=== PATIENT | female | born 1955 | race Caucasian/White ===

== ENCOUNTER 2024-11-29 12:10 | Outpatient (AMB) | payer MEDICARE, OTHER, SELFPAY ==
--- OUTSIDE RECORDS SUMMARY | 2024-11-29 12:26 | XMS_ITS | Clinical Summary ---
Author Organization [facility] [address] [place] [address] [place] [phone] Phone Care Team Providers Care Scrap Burner Name Role Phone Grisel Ramachandran MD Primary Care Provider [phone] Allergies Active Allergy Reactions Criticality Noted Date Comments Sulfa (Sulfonamide Antibiotics) Rash 08/17 Medications DULoxetine (CYMBALTA) [address] capsule Take 1 capsule (60 mg total) by mouth 1 (one) time each day. 4 Active buPROPion SR (WELLBUTRIN SR) 150 mg 12 hr tablet Take 1 tablet (150 mg total) by mouth 1 (one) time each day in the morning. 4 Active atenoloL (TENORMIN) 25 mg tablet Take 1 tablet (25 mg total) by mouth 1 (one) time each day. 4 Active LORazepam (ATIVAN) 0.5 mg tablet 1 po qhs prn anxiety 4 Active levothyroxine (SYNTHROID, LEVOTHROID) 125 mcg tablet Take 1 tablet (125 mcg total) by mouth 1 (one) time each day. 4 Active pravastatin (PRAVACHOL) 10 mg tablet Take 1 tablet (10 mg total) by mouth 1 (one) time each day. 4 Active gabapentin (NEURONTIN) 300 mg capsule 3 times daily. 3 Active acetaminophen (TYLENOL) 500 mg tablet Take 2 tablets (1,000 mg total) by mouth as needed. 2 Active amoxicillin (AMOXIL) 500 mg capsule TAKE 4 CAPSULES BY MOUTH 1 HOURS PRIOR TO APPOINTMENT 3 Active fluticasone propionate (FLONASE) 50 mcg/actuation nasal spray INSTILL 2 SPRAYS BY NASAL ROUTE EVERY DAY 1 Active loratadine (CLARITIN) 10 mg tablet Take 1 tablet (10 mg total) by mouth 1 (one) time each day. 8 Active amLODIPine (NORVASC) 5 mg tabletIndication s:Essential (primary) hypertension TAKE 1 AND 1/2 TABLETS BY MOUTH DAILY 135 tablet 1 4 Active Active Problems Problem Noted Date Diagnosed Date Osteopenia 01/03/2024 Primary osteoarthritis of left shoulder 01/07/20 21 Obstructive sleep apnea 10/29/2019 Overview (07/18/2024): [facility] Polysomnogram: Date 10/22/2019; Wt 224#; BMI 37; SE 37%; SM 57%; REM 0%; RDI 8 (AHI 7), Central apneas 0; Obstructive apneas 13 Mixed apneas 0; hypopneas 5; RERAs 3; average oxygen saturation 94% (lowest 88% - without saturations <88% for 5% or more of study); PLMs 116. Prestudy ESS 8; 0/4 RLS symptoms. - Obstructive Sleep Apnea - mild; mostly obstructive apneas; without sleep related hypoventilation by 2018 polysomnogram. PLMD (periodic limb movement disorder) 0 Hyperlipidemia 05/17/2017 Pap smear of cervix shows high risk HPV present 11/23/2016 Overview (07/18/2024): 11/05/16: Will schedule for colposcopy. Polyp of colon 09/09/2015 Overview (07/18/2024): Tubular Adenoma 12/01 Major depressive disorder, recurrent episode, mi ld 07/08/2015 Hypertension 08/19/2008 Hypothyroid 08/19/2008 Obesity 08/19/2008 Hypersomnia with sleep apnea 08/31/2005 Overview (07/18/2024): CPAP IMO update Immunizations Name Administration Dates Next Due Influenza trivalent, 0.5mL ( Fluzone High-dose) 65yo and older 07/22/2023,09/21/2021,06/28/2020,06/29 Influenza trivalent, with pr eservative (Fluzone; Afluria) 6mo and older 10/01/2016,08/13/2014,08/18/2010,08/14 Moderna SARS-CoV-2 COVID-19, mRNA, LNP-S, preservative free 02/12/2022,12/31/2020,12/03/2020 Pneumococcal conjugate 13 va lent (Prevnar 13, PCV13) 2mo and older 10/30/2019 Pneumococcal polysaccharide 23 valent (Pneumovax 23) 2yo and older 01/06/2021 Td Tetanus diptheria (Tdvax) 7yo and older 07/05/2017 Tdap Tetanus diptheria acell ular pertussis (Boostrix; Adacel) 7yo and older 06/22/2007 Zoster Live 08/05/2014 Surgical History Surgery Date Site/Laterality Comments MAMMOGRAM TEJ 04/2007 PROCEDURE: MAMMOGRAM, SCREENING, BOTH BREASTS; COMMENT: neg OTHER SURGICAL HISTORY 07/2005 PROCEDURE: BREAST RECONSTRUCTION; COMMENT: Jony; tianna OTHER SURGICAL HISTORY 03/2007 PROCEDURE: PAP SMEAR (1 SLIDE); COMMENT: Kevin; josseline COLONOSCOPY 07/2003 PROCEDURE: SC COLONOSCOPY STOMA DX INCLUDING COLLJ SPEC SPX; COMMENT: Helga; josseline; R 10 y COLONOSCOPY 11/22/2014 PROCEDURE: SC COLONOSCOPY STOMA W/RMVL INGRID POLYP/OTH LES SNARE; COMMENT: adenoma; repeat in 5 yrs BREAST REDUCTION 2002 PROCEDURE: SC BREAST REDUCTION HIP ARTHROPLASTY 12/14/2017 Left PROCEDURE: HISTORICAL HIP REPLACEMENT; COMMENT: Dr. Kunz COLONOSCOPY 12/16/2020 PROCEDURE: HISTORICAL COLONOSCOPY; COMMENT: tubular adenomas OTHER SURGICAL HISTORY 05/20/2022 Left PROCEDURE: SC ANES ARTHROSCOPIC TOTAL SHOULDER REPLACEMENT OTHER SURGICAL HISTORY 11/24/2022 Right PROCEDURE: SC ANES ARTHROSCOPIC TOTAL SHOULDER REPLACEMENT Medical History Medical History Date Comments Morbid obesity (CMS/HCC) 08/31/2005 DX:Morb id obesity (HCC) Hypersomnia with sleep apnea , unspecified 08/31/2005 DX:Hypersomnia with sleep ap neema, unspecified Unspecified essential hypertension 08/19/2008 DX:Unspecified essential hypertension Hypothyroid 08/19/2008 DX:Hypothyroid Obesity 08/19/2008 DX:Obesity Ashkenazi Restorationist ancestry re quiring population-specific genetic screening DX:Ashkenazi Uatsdin an[place] ancestry requiring population-specific genetic screening Osteopenia 01/03/2024 DX:Osteopenia Family History Medical History Relation Name Comments Glaucoma Aunt mat Heart attack Father Hypertension Father Prostate cancer Father Colon cancer Maternal Grandfather ? age a t dx Diabetes Maternal Grandfather Diabetes Mother Other: Ashkenazi Restorationist ancestry Other Heart attack Uncle mat Relation Name Status Comments Aunt Father Maternal Grandfather Maternal Grandmother Mother Other Uncle Social History Tobacco Use Types Packs/Day Years Used Date Smoking Tobacco: Never Smokeless Tobacco: Never Alcohol Use Standard Drinks/Week Comments Yes 0 (1 standard drink = 0.6 oz pur e alcohol) Comments Unknown Sex and Gender Information Value Date Recorded Sex Assigned at Not on file Legal Sex Female 10:23 AM EST Gender Identity Not on file Sexual Orientation Not on file Obstetrics History Last Filed Vital Signs Vital Sign Reading Time Taken Comments Blood Pressure 122/72 02/23/2024 10:48 AM EDT Pulse 64 02/23/2024 10:36 AM EDT Temperature - - Respiratory Rate - - Oxygen Saturation - - Inhaled Oxygen Concentration - - Weight 94 kg (207 lb 3.2 oz) 02/23/2024 10:36 AM EDT Height 154.9 cm (5' 1 ) 02/23/2024 10:36 AM EDT Body Mass Index 39.15 02/23/2024 10:36 AM EDT Plan of Treatment Health Maintenance Due Date Last Done Comments Zoster Vaccines (2 of 3) 09/30/2014 08/05/2014 Social Influencers of Health Screening 09/25/2022 Depression Screening 07/22/2024 07/22/2023 Falls Risk Assessment 07/22/2024 07/22/2023 Hypertension/CHF/CAD Annual BMP Blood Test 09/19/2024 09/19/2023 Medicare Annual Wellness Visit 07/18/2025 07/18/2024 Breast Cancer Screening 08/22/2025 08/22/20 23, 11/21/2020, 10/15/2019, Additional history exists Colorectal Cancer Screening: Colonoscopy 12/16/2025 12/16/2020 Cholesterol Screening (Lipid Panel) 05/20/2026 05/20/2021 DTaP,Tdap,and Td Vaccines (3 - Td or Tdap) 07/05/2027 07/05/2017, 06/22/2007 RSV Immunization Patients 60+ Years Old (1 - 1-dose 75+ series) 01/11/2028 Osteoporosis Screening (Bone Density Screening) 01/02/2034 01/03/2024, 11/12/2019 Hepatitis C Screening Completed 03/02/2013 Pneumococcal Vaccine: 50+ Years Completed 01/06/2021, 10/30/2019 Influenza Vaccine Completed 07/18/2024, , 10/19/2022, Additional history exists COVID-19 Vaccine Completed 09/02/2024, 06/2023, 02/12/2022, Additional history exists HIB Vaccines Aged Out No longer eligi ble based on patient's age to complete this topic HPV Vaccines Aged Out No longer eligi ble based on patient's age to complete this topic Hepatitis A Vaccines Aged Out No long er eligible based on patient's age to complete this topic Hepatitis B Vaccines Aged Out No long er eligible based on patient's age to complete this topic IPV Vaccines Aged Out No longer eligi ble based on patient's age to complete this topic MMR Vaccines Aged Out No longer eligi ble based on patient's age to complete this topic Meningococcal ACWY Vaccine Aged Out N o longer eligible based on patient's age to complete this topic RSV Immunization Patients Under 20 months Aged Out No longer eligible based on patient's age to complete this topic Varicella Vaccines Aged Out No longer eligible based on patient's age to complete this topic Procedures Procedure Name Priority Date/Time Associated Diagnosis Comments DXA BONE DENSITY STUDY 1+ SITS AXIAL SKEL Routine 01/03/2024 3:54 PM EDT Encounter for screening for osteoporosis ANNUAL BMP BLOOD TEST Routine 09/19/2023 SCREENING MAMMOGRAPHY BI 2-VIEW BREAST INC CAD Routine 08/22/2023 2:36 PM EST Encounter for screening mammogram for malignant neoplasm of breast DEPRESSION SCREENING Routine 07/22/2023 FALLS RISK ASSESSMENT Routine 07/22/2023 LIPID PANEL Routine 05/20/2021 HM COLONOSCOPY Routine 12/16/2020 HEPATITIS C SCREENING Routine 03/02/2013 from Last 3 Months or Most Recently Relevant to Health Maintenance Results * DXA BONE DENSITY STUDY 1+ SITS AXIAL SKEL (01/03/2024 3:54 PM EDT) Anatomical Region Laterality Modality Bone Densitometr y 07/22/2023 2:22 PM EDT Narrative 01/03/2024 6:30 PM EDT Clinical history: other(see comments) Scans of the lumbar spine and hips were performed on a [employer] fan beam bone densitometer. ? Bone mineral density measurements and associated T and Z scores respectively are as follows: Lumbar Spine: L1-L4 BMD: 1.118 g/cm2 ? T-Score: 0.6 ? Z-Score: 2.8 Wrist: 1/3 BMD: 0.6 g/cm2 ? T-Score: -1.6 ?? Z-Score: 0.6 Compared with standards for the young adult, lowest measured bone density places the patient in the W.H.O. osteopenic range. IMPRESSION: IMPRESSION: Osteopenia. The NOF guidelines recommend that FDA approved medical therapies be considered in postmenopausal women and men age >50 years with a: i. Hip or vertebral (clinical or morphometric) fracture ii. T score of < -2.5 at the spine or hip iii. 10 year fracture probability by FRAX of >3% for hip fracture, or >20% for major osteoporotic fracture PLEASE NOTE: ?? W.H.O. classification is based on lowest measured density at the spine, femoral neck, or total hip.This classification has prognostic significance when applied to post menopausal women and older men. 1) ??The World Health Organization defines low BMD as follows: ?T-score ? Normal ? at or > -1 Osteopenia ? < -1 and ??> - 2.5 Osteoporosis ? at or < -2.5 without fractures Established osteoporosis ? < -2.5 with fractures Procedure Note Daija Ferraro MD - 06/04/2024 Clinical history: other(see comments) Scans of the lumbar spine and hips were performed on a [employer]rol[employer]fan beam bone densitometer. Bone mineral density measurements and associated T and Z scoresrespectively are as follows: Lumbar Spine: L1-L4 BMD: 1.118 g/cm2 T-Score: 0.6 Z-Score: 2.8 Wrist: 1/3 BMD: 0.6 g/cm2 T-Score: -1.6 Z-Score: 0.6 Compared with standards for the young adult, lowest measured bone densityplaces the patient in the W.H.O. osteopenic range. IMPRESSION: IMPRESSION: Osteopenia. The NOF guidelines recommend that FDA approved medical therapies beconsidered in postmenopausal women and men age >50 years with a: i. Hip or vertebral (clinical or morphometric) fracture ii. T score of < -2.5 at the spine or hip iii. 10 year fracture probability by FRAX of >3% for hip fracture, or >20%for major osteoporotic fracture PLEASE NOTE: W.H.O. classification is based on lowest measured density at the spine,femoral neck, or total hip.This classification has prognostic significance when applied to postmenopausal women and older men. 1) The World Health Organization defines low BMD as follows: T-score Normal at or > -1 Osteopenia < -1 and > -2.5 Osteoporosis at or < -2.5 withoutfractures Established osteoporosis < -2.5 with fractures Amrik MORRISON IMJose Carlos DXA PROCEDURES Final Resul t * Annual BMP Blood Test (09/19/2023) Annual BMP Blood Test abstracted Historical Provider HEALTH MAINTENANCE Final Result * SCREENING MAMMOGRAPHY BI 2-VIEW BREAST INC CAD (08/22/2023 2:36 PM EST) Anatomical Region Laterality Modality Radiographic Sheila ging 07/22/2023 2:34 PM EDT Narrative 08/23/2023 2:46 PM EST This is a summary report. The complete report is available in the patient's medical record. If you cannot access the medical record, please contact the sending organization for a detailed fax or copy. Full field digital screening tomosynthesis mammography, reviewed with CAD and compared to previous. The breasts are composed of fatty and fibroglandular tissue. ??No suspicious mass, architectural distortion or suspicious calcifications are identified. IMPRESSION: : No mammographic evidence of malignancy. BIRADS 1-Negative; N. 5 year breast cancer risk assessment 1.9 % Lifetime breast cancer risk assessment 5.6 % Breast cancer risk category Low (<15%) Procedure Note Kassie Adams MD - 11/22/2023 This is a summary report. The complete report is available in thepatient's medical record. If you cannot access the medical record, pleasecontact the sending organization for a detailed fax or copy. Full field digital screening tomosynthesis mammography, reviewed with CADand compared to previous. The breasts are composed of fatty andfibroglandular tissue. No suspicious mass, architectural distortion orsuspicious calcifications are identified. IMPRESSION: : No mammographic evidence of malignancy. BIRADS 1-Negative; N. 5 year breast cancer risk assessment 1.9 % Lifetime breast cancer risk assessment 5.6 % Breast cancer risk category Low (<15%) Amrik LOCKETT XR PROCEDURES Final Result * Falls Risk Assessment (07/22/2023) [facility] Falls Risk Assessment abstracted Historical Provider HEALTH MAINTENANCE Final Result * Depression Screening (07/22/2023) Pathologist [facility] Depression Screening abstracted [facility] Provider HEALTH MAINTENANCE Final Result * Lipid panel (05/20/2021) [facility] LDL/HDL Ratio 3 0 - 4 Triglycerides 144 0 - 150 mg/dL Cholesterol 186 0 - 200 mg/dL HDL 60 >=40 mg/dL LDL Cholesterol 98 0 - 100 mg/dL Blood Venous blood specimen / Unknown [facility] Provider LAB BLOOD ORDERABLES Jennifer l Result * Colonoscopy (12/16/2020) Pathologist [facility] Colonoscopy no interpretation , abstracted Anatomical Region Laterality Modality Other [facility] Provider HEALTH MAINTENANCE Final Result * Hepatitis C Screening (03/02/2013) [facility] Hepatitis C Screening abstracted [facility] Provider HEALTH MAINTENANCE Final Result from Last 3 Months or Most Recently Relevant to Health Maintenance Insurance MEDICARE UNICARE MEDICARE ADVANTAGE Care Teams Scrap Burner Relationship Specialty Start Date End Date Grisel Ramachandran MD [address] [place] [phone] PCP - General 04/02/24
--- OUTSIDE RECORDS SUMMARY | 2024-11-29 12:26 | XMS_ITS | Clinical Summary ---
Author Organization [facility] Address [address] [place] [address] Care Team Providers Care Electroplater Automatic Name Role Phone Ruthann Greene Primary Care Provider Allergies Active Allergy Reactions Criticality Noted Date Comments Sulfa Antibiotics Other (See Comments) 08/31/20 05 Medications Medication Sig Dispensed Refills Start Date End Date Status amLODIPine (NORVASC) tablet 5 mg Take 1 tablet (5 mg total) by mouth daily. 0 08/01/2022 Active atenolol (TENORMIN) tablet 25 mg Take 1 tablet (25 mg total) by mouth daily. 0 05/05/2022 Active buPROPion (WELLBUTRIN SR) 150 MG 12 hr tablet TAKE 1 TABLET BY MOUTH EVERY DAY IN THE MORNING 0 08/14/2022 Active DULoxetine (CYMBALTA) DR capsule 60 mg Take 1 capsule (60 mg total) by mouth daily. 0 08/18/2022 Active levothyroxine (SYNTHROID) tablet 100 mcg Take 1 tablet (100 mcg total) by mouth daily. 0 08/01/2022 Active pravastatin (PRAVACHOL) tablet 10 mg Take 1 tablet (10 mg total) by mouth daily. 0 06/18/2022 Active Family History Medical History Relation Name Comments Diabetes Mother Relation Name Status Comments Mother Social History Tobacco Use Types Packs/Day Years Used Date Smoking Tobacco: Never Assessed Tobacco Cessation:Counseling Given: Not Answered Sex and Gender Information Value Date Recorded Sex Assigned at Not on file Gender Identity Not on file Sexual Orientation Not on file Job Start Date Occupation Industry Not on file Not on file Not on file Last Filed Vital Signs Vital Sign Reading Time Taken Comments Blood Pressure - - Pulse - - Temperature - - Respiratory Rate - - Oxygen Saturation - - Inhaled Oxygen Concentration - - Weight 94.3 kg (208 lb) 08/25/2022 1:37 PM EST Height 157.5 cm (5' 2 ) 08/25/2022 1:37 PM EST Body Mass Index 38.04 08/25/2022 1:37 PM EST Plan of Treatment Health Maintenance Due Date Last Done Comments Hepatitis C Screening 1955 COVID-19 Vaccine (#1) 1953 Depression Screening 1965 BMI Counseling 1971 Preventative Health Evaluation 1971 Colon Cancer Screening (Colonoscopy) 1998 Breast Cancer Screening (Mammogram) 2003 Shingrix-Zoster Vaccine (1 of 2) 2003 DTap / Tdap / Td (2 - Td or Tdap) 06/22/2017 06/22/2007 Fall Risk Assessment 2018 Osteoporosis Screening (DEXA Scan) 2018 Influenza Vaccine (#1) 2024 , 06/28/2020, 06/29/2017, Additional history exists RSV Adult > 60+ Yrs or (1 - 1-dose 75+ series) 01/11/2028 Pneumococcal Vaccine Completed 01/06/2021, 10/30/19 20 Hepatitis B Vaccines Aged Out No long er eligible based on patient's age to complete this topic RSV Ped < 20 months Aged Out No longe r eligible based on patient's age to complete this topic Care Teams Electroplater Automatic Relationship Specialty Start Date End Date Ruthann Greene Elenita [address] [facility] [place] [address] PCP - General Internal Medicine 08/25/22
--- OUTSIDE RECORDS SUMMARY | 2024-11-29 12:26 | XMS_ITS ---
Author Name [facility] Organization Unknown History of Medication Use Medication Directions Dispensed Refills Start Date End Date Stat us atenoloL (TENORMIN) 25 mg tablet Take 1 tablet (25 mg total) by mouth daily. active LORazepam (ATIVAN) 0.5 mg tablet 1 po qhs prn anxiety 02/23/2024 active levothyroxine (SYNTHROID, LEVOTHROID) 125 MCG tablet Take 1 tablet (125 mcg total) by mouth daily. active Problems Problem Status Onset Date Problem Type Date of Resolution Source Seborrheic dermatitis active EncounterDiagnosisAct CT_YAL EUC
--- OUTSIDE RECORDS SUMMARY | 2024-11-29 12:26 | XMS_ITS | Clinical Summary ---
Author Organization [facility] Address [address] [place] [id number] Care Team Providers Care Clerk Operator Name Role Phone Unavailable Primary Care Provider Unavailabl e Social History Tobacco Use Types Packs/Day Years Used Date Smoking Tobacco: Never Assessed Comments Unknown Sex and Gender Information Value Date Recorded Sex Assigned at Not on file Legal Sex Female 11:23 AM EDT Gender Identity Not on file Sexual Orientation Not on file Plan of Treatment Health Maintenance Due Date Last Done Comments Breast Cancer Screening 1955 Colorectal Cancer Screening: Annual FOBT 2002 Colorectal Cancer Screening: Colonoscopy 2002 Colorectal Cancer Screening: Sigmoidoscopy 2002 Pneumococcal Vaccine: 65+ Ye ars (1 of 1 - PCV) 2018 Influenza Vaccine (#1) 2024 Hepatitis B Vaccine Aged Out No longe r eligible based on patient's age to complete this [place] [address] [address] [facility] [place] [address] MEDICARE [facility]
--- OUTSIDE RECORDS SUMMARY | 2024-11-29 12:26 | XMS_ITS | Clinical Summary ---
Author Organization [facility] Address [address] [place] [address] Care Team Providers Care Estate Planning Paralegal Name Role Phone Marie Duran CREDIT RISK MANAGEMENT DIRECTOR Primary Care Provider [phone] Allergies Active Allergy Reactions Criticality Noted Date Comments Sulfa (Sulfonamide Antibiotics) Other (See Comments) Mediu 08/31/2005 Medications amLODIPine (NORVASC) 5 mg tablet Take 1.5 tablets (7.5 mg total) by mouth daily. 03/15/2024 Active atenoloL (TENORMIN) 25 mg tablet Take 1 tablet (25 mg total) by mouth daily. Active buPROPion SR (WELLBUTRIN SR) 150 mg 12 hr tablet Take 1 tablet (150 mg total) by mouth every morning. Active DULoxetine (CYMBALTA) 60 mg capsule Take 1 capsule (60 mg total) by mouth daily. Active levothyroxine (SYNTHROID, LEVOTHROID) 125 MCG tablet Take 1 tablet (125 mcg total) by mouth daily. Active LORazepam (ATIVAN) 0.5 mg tablet 1 po qhs prn anxiety 02/23/2024 Active pravastatin (PRAVACHOL) 10 mg tablet Take 1 tablet (10 mg total) by mouth daily. 11/18/2023 Active Active Problems No known active problems Encounters Date Type Department Care Team Description 09/11/2024 2:30 PM EST Office Visit [facility] [address] [place] [address] James Bird PA Seborrheic dermatitis (Primary Dx) from Last 3 Months Social History Tobacco Use Types Packs/Day Years Used Date Smoking Tobacco: Never Smokeless Tobacco: Never Tobacco Cessation:Counseling Given: Not Answered Alcohol Use Standard Drinks/Week Comments Not Currently 0 (1 standard drink = 0.6 oz pur e alcohol) Comments Unknown Sex and Gender Information Value Date Recorded Sex Assigned at Not on file Legal Sex Female 10:49 AM EST Gender Identity Not on file Sexual Orientation Not on file Last Filed Vital Signs Vital Sign Reading Time Taken Comments Blood Pressure 143/71 09/11/2024 2:45 PM EST Pulse 60 09/11/2024 2:45 PM EST Temperature 36.2 ??C (97.2 ??F) 09/11/2024 2:45 PM ES T Respiratory Rate 16 09/11/2024 2:45 PM EST Oxygen Saturation 97% 09/11/2024 2:45 PM EST Inhaled Oxygen Concentration - - Weight 86.2 kg (190 lb) 09/11/2024 2:45 PM EST Height - - Body Mass Index - - Plan of Treatment Health Maintenance Due Date Last Done Comments HIV screening 1966 Hepatitis C screening 1971 Breast cancer screening 1993 Lipid disorder screening 1993 Colon cancer screening, Colonoscopy 1998 Diabetes screening 1998 Shingles vaccine (Shingrix) (1 of 2 - Shingrix (RZV) 2 Dose Standard Series) 2003 Tetanus adult (Td q 10,TDAP once) 06/22/2017 06/22/2007 Osteoporosis screening (bone density) 2018 Influenza vaccine 05/17/2024 07/22/2023, , 06/28/2020, Additional history exists Covid-19 vaccine series ( season) 2024 02/12/2022, 12/31/2020, 12/03/2020 RSV Discussion (1 - 1-dose 75+ series) 01/11/2028 Pneumo Vaccine 65+ Completed 01/06/2021, 10/30/2019 Cervical cancer screening Discontinued Meningococcal Vaccine Aged Out No dalia nico eligible based on patient's age to complete this topic Insurance MEDICARE COMMERCIAL GENERIC MEDICARE COMMERCIAL GENERIC COMMERCIAL GENERIC Member Subscriber Plan / Payer (Ef fective 2024-Present) Name:Inocencia Carson Relation to Subscriber:Self Name:Inocencia Carson Payer ID:[id number] Type:Not on file Address: [address] [address] Care Teams Estate Planning Paralegal Relationship Specialty Start Date End Date Marie Duran NP [address] [place] [address] [place] [address] PCP - General Cardiovascular Disease 09/11/24
--- NOTE | 2024-11-29 13:12 | MHC.AMDMED ---
Intake Intake Visit Reasons: Type 2 DM [place] Required: No Accompanied by: Self / Same As Patient HPI Comprehensive Diabetes Asmnt Most Recent Diabetes Results: No Data to Display Assessment & Plan Assessment & Plan (1) Pre-diabetes: Code(s): R73.03 - Prediabetes Plan: Learning objectives: The patient was provided with verbal and written education on the following topics as outlined below. The patient met all learning objectives and was able to verbalize understanding and provide teach back of education topics discussed . The patient was provided with the opportunity to ask questions and all questions were answered. 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 How diet effects glucose Eating 3 balanced meals a day with small, healthy snacks between meals Review food groups Carbohydrates: What is a carbohydrate/Which food/food groups are considered carbohydrates Effect of carbohydrates on blood glucose Portion sizes Reading food labels Basic carb counting (if applicable per nursing assessment) Plate method Meal planning Recommendations: Follow plate method, consistent carbs and read nutritional labels. Smart Goal: Patient will identify foods in current meal plan that contain carbohydrates keeping meals 30-45 g Educational Materials: The patient was provided with the following written educational materials: Planning Healthy Meals Handout Patient Response to instructions: Comprehension of Instructions: Fair Readiness to make changes: Contemplation How confident they feel about making changes: Positive Portions of this note were created using voice recognition software, please excuse any words or phrases that may have been misinterpreted. Patient Instructions: Include regular daily activity. ADA recommends 30 minutes of exercise 5 days a week. Weight loss talk to PCP or Marketing Technology Specialist before starting new plan. Test blood sugar as directed; Fasting and 2hpp largest meal. Watch trends in results. Utilize results and to assess how food, physical activity and medications affect blood sugar results. Bring glucometer or CGM to next visit. Be knowledgeable about diabetes medication, its action, side effects, efficacy, toxicity, prescribed dosage, appropriate timing and frequency of administration, effect of missed and delayed doses and instructions for storage, travel and safety. Problem solving techniques to monitor hypo/hyperglycemia episodes and treatments. Reduce risk reduction behaviors, smoking cessation, regular eye, foot and dental examinations. Coding Level of Care Code Est Pt Level 1 (22188) Diagnoses Pre-diabetes R73.03
== END 2024-11-29 13:50 | disposition home or self-care (01) ==
PROVIDERS: PCP Nurse Practitioner Family; Visit Provider Registered Nurse Diabetes Educator
DX: R73.03 Prediabetes (principal)

== ENCOUNTER → 2024-11-29 12:10 | Outpatient (BNVA) | payer MEDICARE, OTHER, SELFPAY | PROVIDERS: PCP Nurse Practitioner Family; Visit Provider Registered Nurse Diabetes Educator | DX: R73.03 Prediabetes (principal) | CPT/HCPCS: 99211 ==